=== PATIENT | female | born 1985 ===

== ENCOUNTER 2025-08-22 13:32 | Outpatient (CLI) | payer OTHER | END 2025-08-22 15:20 | disposition home or self-care (01) | LOC: NST 13:32 | PROVIDERS: ATTEND Obstetrics & Gynecology Gynecology | DX: Z34.83 Encounter for supervision of other normal pregnancy, third trimester (principal) ==

== ENCOUNTER 2025-08-26 12:51 | Outpatient (CLI) | payer OTHER ==
[2025-08-27] MEDS ORDERED: LABETALOL HCL100 MG PO (14:47)
[2025-08-27] MEDS ORDERED: NIFE60TA3 PO (14:47)
[2025-08-27] MEDS ORDERED: PEPCID AC20 MG PO (14:48)
[2025-08-27] MEDS ORDERED: SYNTHROID50 MCG PO (14:48)
== END 2025-08-26 15:24 | disposition home or self-care (01) ==
LOC: NST 12:51
PROVIDERS: ATTEND Obstetrics & Gynecology Gynecology
DX: Z34.83 Encounter for supervision of other normal pregnancy, third trimester (principal)

== ENCOUNTER 2025-08-27 13:24 | Inpatient (IN) | payer OTHER ==
[~2025-08-27] VITALS: Ht 162.6 cm; Wt 95.3 kg
[2025-08-27 14:15] VITALS: BP 132/76
[2025-08-27 14:22] VITALS: BP 132/76
[2025-08-27] MEDS ORDERED: NIFE60TA3 PO (14:47)
[2025-08-27] MEDS ORDERED: LABETALOL HCL100 MG PO (14:47)
[2025-08-27] MEDS ORDERED: SYNTHROID50 MCG PO (14:48)
[2025-08-27] MEDS ORDERED: PEPCID AC20 MG PO (14:48)
[2025-08-27] MEDS ORDERED: FAMOTIDINE/PF 20 MG/2 ML VIAL IV PRN (15:00)
[2025-08-27] MEDS ORDERED: MORPHINE SULFATE 4 MG/ML VIAL IV PRN (15:00)
[2025-08-27] MEDS ORDERED: MISOPROSTOL 25 MCG TABLET VAG ONE (15:00)
[2025-08-27 15:32] VITALS: BP 138/78
[2025-08-27 15:43] LABS: BASO % 0.2 % (0.1-1.2); EOS # 0.05 (0.04-0.54); EOS % 0.6 % (0.7-7.0); LYMPH # 1.45 (1.18-3.74); LYMPH % 17.6 % (19.3-53.1); MEAN PLATELET VOLUME 10.20 fl (9.4-12.4); MONO # 0.56 (0.24-0.82); MONO % 6.8 % (4.7-12.5); NEUT # 6.10 (1.56-6.13); NEUT % 74.3 % (34.0-71.1); RED CELL DISTRIBUTION WIDTH 13.2 % (11.6-14.4); URINE APPEARANCE Clear; URINE BILIRRUBIN Negative (NEGATIVE); URINE BLOOD Negative; URINE COLOR Dark Yellow; URINE GLUCOSE Negative (NEGATIVE); URINE KETONE Trace (NEGATIVE); URINE LEUKOCYTE Trace; URINE NITRATE Negative; URINE PROTEIN Trace (NEGATIVE); URINE UROBILINOGEN 1.0 E.U./dl
[2025-08-27 15:46] LABS: URINE EPITHELIAL CELLS 17.1 uL (0.0-38.8); URINE RBC 6.2 uL (0.0-20.8); URINE WBC 19.7 uL (0.0-23.2)
[2025-08-27 15:49] LABS: URINE CAST 0.70 uL (0.0-1.40)
[2025-08-27 16:07] LABS: INR < 0.93
[2025-08-27 16:32] LABS: ALT/SGPT 40.0 U/L (12-78); AST/SGOT 27.0 U/L (15-37); BILIRUBIN TOTAL 0.49 mg/dL (0.3-1.2); BUN CREA RATIO 14.0 (7.0-25.0); CREATININE SERUM 0.96 mg/dL (0.55-1.02); GFR 64.7; GLOBULINA 3.9 G/DL (2.4-3.5); GLUCOSE FASTING 85.0 mg/dL (65-100); OSMOLALITY SERUM 282.0 MOSM/KG (275-295)
[2025-08-27 18:52] VITALS: BP 127/73
[2025-08-27] MEDS ORDERED: MISOPROSTOL 25 MCG TABLET ONE (19:17)
[2025-08-27] MEDS ORDERED: LABETALOL HCL 100 MG TABLET PO SCH (21:00)
[2025-08-27] MEDS ORDERED: NIFEDIPINE 60 MG TAB.SA.OSM PO SCH (21:00)
[2025-08-27 23:36] VITALS: BP 134/65
[2025-08-28 03:17] VITALS: BP 105/48
[2025-08-28] MEDS ORDERED: LEVOTHYROXINE SODIUM 50 MCG TABLET PO SCH (06:00)
[2025-08-28] MEDS ORDERED: OXYTOCIN 500 ML IV ONE (07:30)
[2025-08-28 08:03] VITALS: BP 145/68
[2025-08-28 12:00] VITALS: BP 133/74
[2025-08-28] MEDS ORDERED: ERYTHROMYCIN BASE OPHT 1GM EACH TUBE OP ONE (13:59)
[2025-08-28] MEDS ORDERED: OXYTOCIN 10 UNITS/ML VIAL ONE ×2 (13:59→19:07)
[2025-08-28] MEDS ORDERED: CEFAZOLIN SODIUM 1,000 MG VIAL ONE (15:10)
[2025-08-28] MEDS ORDERED: OXYTOCIN 1,000 ML IV ONE (15:15)
[2025-08-28] MEDS ORDERED: DOCUSATE SODIUM 100MG CAP PO NR (15:45)
[2025-08-28] MEDS ORDERED: CEFAZOLIN SODIUM 1,000 MG VIAL IV ONE (16:30)
[2025-08-28] MEDS ORDERED: MORPHINE SULFATE 4 MG/ML VIAL IV SCH (17:00)
[2025-08-28] MEDS ORDERED: KETOROLAC TROMETHAMINE 30 MG VIAL ONE (17:31)
[2025-08-28] MEDS ORDERED: KETOROLAC TROMETHAMINE 30 MG VIAL IV SCH (18:00)
[2025-08-28] MEDS ORDERED: ACETAMINOPHEN 500 MG GEL..CAP PO SCH (18:00)
[2025-08-28] MEDS ORDERED: ACETAMINOPHEN 500 MG GEL..CAP PO ONE (19:06)
[2025-08-28 19:35] VITALS: BP 144/77
[2025-08-29] VITALS: BP 142/78
[2025-08-29 08:00] VITALS: BP 123/80
[2025-08-29 08:10] LABS: BASO % 0.2 % (0.1-1.2); EOS # 0.09 (0.04-0.54); EOS % 0.8 % (0.7-7.0); LYMPH # 1.42 (1.18-3.74); LYMPH % 12.1 % (19.3-53.1); MEAN PLATELET VOLUME 10.30 fl (9.4-12.4); MONO # 0.63 (0.24-0.82); MONO % 5.4 % (4.7-12.5); NEUT # 9.52 (1.56-6.13); NEUT % 81.2 % (34.0-71.1); RED CELL DISTRIBUTION WIDTH 13.1 % (11.6-14.4)
[2025-08-29] MEDS ORDERED: PNV,CALCIUM 72/IRON/FOLIC ACID 1 TAB TABLET PO SCH (09:00)
[2025-08-29] MEDS ORDERED: GABAPENTIN 300 MG CAPSULE PO SCH (09:00)
[2025-08-29] MEDS ORDERED: DOCUSATE SODIUM 100MG CAP PO SCH (09:00)
[2025-08-29 16:00] VITALS: BP 140/71
[2025-08-30] VITALS: BP 147/82
[2025-08-30 08:00] VITALS: BP 100/60; BP 140/80
[2025-08-30] MEDS ORDERED: SIMETHICONE 125 MG CAPSULE PO SCH (09:00)
== END 2025-08-30 11:36 | disposition home or self-care (01) | DRG 788 ==
LOC: LDR 13:24 → OB/GYN 14:13 → LDR 14:30 → OB/GYN 08-28 14:43
PROVIDERS: ADMIT Obstetrics & Gynecology Gynecology; ATTEND Obstetrics & Gynecology Gynecology
PROC: 3E0P7VZ Introduction of Hormone into Female Reproductive, Via Natural or Artificial Opening (ICD-10-PCS; 2025-08-27)
PROC: 4A1HXCZ Monitoring of Products of Conception, Cardiac Rate, External Approach (ICD-10-PCS; 2025-08-27)
PROC: 3E033VJ Introduction of Other Hormone into Peripheral Vein, Percutaneous Approach (ICD-10-PCS; 2025-08-28)
PROC: 10D00Z1 Extraction of Products of Conception, Low, Open Approach (ICD-10-PCS; principal; 2025-08-28 17:30)
DX: O82 Encounter for cesarean delivery without indication (principal); O61.0 Failed medical induction of labor; Z3A.38 38 weeks gestation of pregnancy; Z37.0 Single live birth